=== PATIENT | male | born 1990 | race Hispanic/Latino ===

== ENCOUNTER 2021-11-22 16:44 | Emergency (ER) | payer MEDICARE ==
[~2021-11-22] VITALS: Ht 182.9 cm; Wt 86.2 kg
[2021-11-22 16:46] VITALS: BP 121/74
[2021-11-22] MEDS ORDERED: HALOPERIDOL INJ 5 MG/ML VIAL ONE (17:13)
[2021-11-22] MEDS ORDERED: HALOPERIDOL INJ 5 MG/ML VIAL IM SCH (17:30)
== END 2021-11-22 17:36 | disposition home or self-care (01) ==
LOC: EDH 16:44
DX: R41.82 Altered mental status, unspecified (principal); Z53.21 Procedure and treatment not carried out due to patient leaving prior to being seen by health care provider
CPT/HCPCS: J1630